=== PATIENT | female | born 1935 | race Caucasian/White ===

== ENCOUNTER → 2017-10-05 | Outpatient (CLI) | payer MEDICARE, MEDICAID ==
--- NOTE | 2017-10-05 15:38 | RADIOLOGY REPORT PS360 ---
CT HEAD W/O CONTRAST HISTORY: MENTAL CHANGES,HEADACHES ORDERING PHYSICIAN: Franco Davis MD PATIENT AGE: 82 years COMPARISON: None TECHNIQUE: Axial images obtained without contrast. Brain and bone windows reviewed. FINDINGS: No midline shift, mass effect, intracranial hemorrhage, hydrocephalus, or extra-axial fluid collection is evident. Involutional changes of age with mild volume loss and periventricular ischemic gliotic change. Patient's head is slightly rotated in the CT gantry. There is some increased soft tissue density in the cavernous region on the left to the left of the sella turcica. While this may be related to vascular ectasia and volume averaging from patient rotation, one cannot exclude a mass in this region. This could be better evaluated with MRI. If that is not performed then released recommend CT of the head without and with contrast with head not rotated The calvarium has an unremarkable appearance. Small amount fluid in left mastoid sinus. The visualized paranasal sinuses are unremarkable. IMPRESSION: 1. No definite acute intracranial finding. 2. 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 Recommend follow-up best be performed with MRI without and with contrast. Alternatively, CT of the head without and with contrast without hip rotation could also be of further value.
== END ==
LOC: RAD 15:01
DX: R51 Headache (principal); R41.82 Altered mental status, unspecified

== ENCOUNTER → 2017-10-14 | Outpatient (CLI) | payer MEDICARE, MEDICAID ==
--- NOTE | 2017-10-17 06:34 | RADIOLOGY REPORT PS360 ---
MRI-BRAIN W/WO HISTORY: Mental status changes, headache, abnormal head CT suggesting possible lesion within the left cavernous sinus ABNORMAL CT SCAN, HEADACHES, MENTAL CHANGES ORDERING PHYSICIAN: Franco Davis MD PATIENT AGE: 82 years COMPARISON: Head CT of 10/05/2017 TECHNIQUE: Standard multiplanar multiecho sequences are performed without and with gadolinium enhancement. FINDINGS: No midline shift, mass effect, intracranial hemorrhage, or hydrocephalus is evident. No obvious mass within the cavernous sinus. 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 There are scattered periventricular and subcortical T2 white matter hyperintensities consistent with ischemic gliotic change from microvascular disease. No restricted diffusion evident. No abnormal enhancement. Mild atrophy There are bilateral mastoid effusions. The cerebellopontine angles, cerebellum, and brainstem are unremarkable. There is mild mucosal thickening of the ethmoid sinuses. IMPRESSION: 1. No acute intracranial finding. 2. CT abnormality of the cavernous sinus on the left is felt to be due to vascular ectasia and head tilt as opposed to a mass. Consider 6 month follow-up to confirm stability. 3. Extensive T2 white matter hyperintensities likely related to ischemic gliotic change from microvascular disease. 3. Bilateral mastoid sinus disease
== END ==
LOC: RAD 10:20
DX: R51 Headache (principal); R41.82 Altered mental status, unspecified; R93.8 Abnormal findings on diagnostic imaging of other specified body structures
CPT/HCPCS: A9576